=== PATIENT | male | born 1990 | race African-American/Black ===

== ENCOUNTER 2017-01-08 10:02 | Emergency (ER) | payer BC, OTHER ==
[2017-01-08 09:51] LABS: URINE SOURCE CLEAN CATCH
[2017-01-08 10:00] LABS: URINE APPEARANCE CLEAR; URINE BILIRUBIN NEG (NEG); URINE BLOOD NEG (NEG); URINE COLOR YELLOW; URINE GLUCOSE NEG (NEG); URINE KETONE NEG (NEG); URINE LEUKOCYTE ESTERASE 2+ (NEG); URINE NITRATE NEG (NEG); URINE PROTEIN NEG (NEG); URINE SPECIFIC GRAVITY 1.021 (1.003-1.035)
[~2017-01-08 10:02] MED LIST: FLEXERIL10 M1 PO; NAPROSYN500 MG PO
[2017-01-08 10:03] LABS: CULTURE INDICATED? YES; URINE BACTERIA AUWI NEG (NEGATIVE); URINE SQUAMOUS EPITHELIAL CELL NONE SEEN /[HPF]; UWBCS1 AUWI 50-100 (0-5)
[2017-01-08 10:24] LABS: URINE MUCUS PRESENT
[2017-01-08 10:26] LABS: URINE TRICHOMONAS NEGATIVE
[2017-01-10 03:07] LABS: CHLAMYDIA TRACH Not Detected (Not Detected); N GONOR Detected (Not Detected)
== END 2017-01-08 11:12 | disposition home or self-care (01) ==
LOC: CED 10:02
PROVIDERS: Nurse Practitioner
DX: N34.1 Nonspecific urethritis (principal)
CPT/HCPCS: 81003; 87086; 87491; 87591; 96372; 99283; J0696